=== PATIENT | female | born 2000 | race Two or more races ===

== ENCOUNTER 2024-12-28 10:25 | Emergency (ER) | payer BC | END 2024-12-28 11:19 | disposition home or self-care (01) | LOC: DL.ED 10:25 | DX: R06.02 Shortness of breath (principal); T50.Z95A Adverse effect of other vaccines and biological substances, initial encounter | CPT/HCPCS: 99282; 99283 ==

== ENCOUNTER 2025-02-01 16:04 | Observation (INO) | payer BC ==
[2025-02-01] MEDS: Lactated Ringers 1,000 ML IV ONE (19:50)
== END 2025-02-02 10:50 | disposition home or self-care (01) ==
LOC: DL.OBCHECK 16:04 → DL.MS 22:12
PROVIDERS: ADMIT Family Medicine; ATTEND Family Medicine
DX: O24.415 Gestational diabetes mellitus in pregnancy, controlled by oral hypoglycemic drugs (principal); O28.8 Other abnormal findings on antenatal screening of mother; Z79.84 Long term (current) use of oral hypoglycemic drugs; Z79.899 Other long term (current) drug therapy
CPT/HCPCS: 59025; G0378; J7120

== ENCOUNTER → 2025-02-12 12:30 | Inpatient (IN) | payer BC ==
[2025-02-08 13:32] LABS: PLATELET COUNT,PLT 219.0 10^3/uL (150-450); RED BLOOD CELL COUNT 4.17 10^6/uL (4.2-5.4); WHITE BLOOD CELL COUNT,WBC 10.2 10^3/uL (5.0-10.0)
[2025-02-08] MEDS: Misoprostol 50 MCG (1/2 of 100 MCG) Tab PO SCH (13:45)
[2025-02-08] MEDS: Lactated Ringers 1,000 ML IV ONE (18:30)
[2025-02-09] MEDS: Oxytocin/Normal Saline 30 UNIT/500 ML BAG IV SCH (00:08)
[2025-02-09] MEDS: Lactated Ringers 1,000 ML IV SCH (00:43)
[2025-02-10 00:53] LABS: CREATININE,URINE RAND 85.72 mg/dL (No establ ref range); PROTEIN CREATININE RATIO,URINE 326.6 mg/g (<150.0); PROTEIN,URINE RANDOM 28.0 mg/dL (0.0-11.9)
[2025-02-10] MEDS: Ketorolac 30 MG/ML SDV IVPUSH ONE (04:00)
[2025-02-10] MEDS: fentaNYL 100 MCG/2 ML SDV IVPUSH PRN (04:09)
[2025-02-10 08:11] LABS: PLATELET COUNT,PLT 190.0 10^3/uL (150-450); RED BLOOD CELL COUNT 3.5 10^6/uL (4.2-5.4); WHITE BLOOD CELL COUNT,WBC 22.4 10^3/uL (5.0-10.0)
[2025-02-10 08:31] LABS: ALANINE AMINOTRANSFERASE,ALT 12.0 U/L (14-59); ASPARTATE AMNIOTRANSFERASE,AST 16.0 U/L (15-37); BLOOD UREA NITROGEN,BUN 14.0 mg/dL (7-18); CREATININE 0.68 mg/dL (0.55-1.02); EST CRCL DRUG DOSING (CG) 111.11 mL/min; LACTATE DEHYDROGENASE,LDH 215.0 U/L (81-234)
[2025-02-10] MEDS: Acetaminophen/oxyCODONE 325-5 MG Tab PO PRN (08:36)
[2025-02-10] MEDS: Prenatal Multivitamin with Calcium/Folic Acid/Iron Tab PO SCH (08:37)
[2025-02-10 08:38] LABS: ESTIMATED GFR 125.0 mL/min (>=60)
[2025-02-10] MEDS: Ketorolac 30 MG/ML SDV IVPUSH SCH (10:20)
[2025-02-11 07:48] LABS: BASOPHILS PERCENT AUTO 0.1 % (0.0-1.0); EOSINOPHILS PERCENT AUTO 0.5 % (1.0-3.0); LYMPHOCYTES PERCENT AUTO 12.9 % (20.5-50.1); MONOCYTES PERCENT AUTO 4.9 % (2-8); NEUTROPHILS PERCENT AUTO 81.6 % (42.2-75.2); PLATELET COUNT,PLT 193 10^3/uL (150-450); RED BLOOD CELL COUNT 2.84 10^6/uL (4.2-5.4); WHITE BLOOD CELL COUNT,WBC 14.6 10^3/uL (5.0-10.0)
[~2025-02-12 12:30] MED LIST: Acetaminophen/oxyCODONE 325-5 MG Tab PO PRN; Carboprost Tromethamine 250 MCG/1 mL Vial IM PRN; Dexamethasone 4 MG/ML SDV IV ONE; Dexamethasone 4 MG/ML SDV ONE; Ketorolac 30 MG/ML SDV IVPUSH SCH; Lactated Ringers 1,000 ML IV ONE; Lactated Ringers 1,000 ML IV SCH; Midazolam 1 MG/ML 2 ML SDV IV ONE; Misoprostol 50 MCG (1/2 of 100 MCG) Tab PO PRN; Morphine PF 10 MG/10 ML SDV EPIDUR ONE; Ondansetron 4 MG/2 ML SDV IV ONE; Ondansetron 4 MG/2 ML SDV IVPUSH PRN; Oxytocin 10 Units/1 ML SDV IM PRN; Oxytocin/Lactated Ringers 30 UNIT/500 ML BAG IV SCH; Oxytocin/Normal Saline 30 UNIT/500 ML BAG IV ONE; Oxytocin/Normal Saline 30 UNIT/500 ML BAG ONE; Propofol 200 MG/20 ML SDV IV ONE; Ropivacaine 100 ML EPIDUR ONE; Ropivacaine 200 MG in Premix Bag 1 BAG EPIDUR SCH; Sodium Chloride 0.9% 10 ML Syringe FLUSH PRN; Sodium Chloride 0.9% 10 ML Syringe IV ONE; diphenhydrAMINE 50 MG/ML SDV IVPUSH PRN; ePHEDrine 50 MG/ML SDV IVPUSH PRN; fentaNYL 100 MCG/2 ML SDV EPIDUR ONE
== END | disposition home or self-care (01) | DRG 540 ==
LOC: DL.OB 02-08 13:23 → UNDOADMOB 02-08 13:23 → DL.OB 02-09 13:23 → UNDOADMOB 02-08 12:22 → DL.OB 02-08 12:22 → OBSVTOIN 02-10 01:18
PROVIDERS: ADMIT Family Medicine; ATTEND Family Medicine
PROC: 10D00Z1 Extraction of Products of Conception, Low, Open Approach (ICD-10-PCS; principal; 2025-02-10)
DX: O24.425 Gestational diabetes mellitus in childbirth, controlled by oral hypoglycemic drugs (principal); Z3A.39 39 weeks gestation of pregnancy; Z37.0 Single live birth; O99.214 Obesity complicating childbirth; Z79.84 Long term (current) use of oral hypoglycemic drugs; Z79.899 Other long term (current) drug therapy; O77.0 Labor and delivery complicated by meconium in amniotic fluid; O14.94 Unspecified pre-eclampsia, complicating childbirth; D62 Acute posthemorrhagic anemia; Z98.890 Other specified postprocedural states
CPT/HCPCS: 36415; 51702; 82565; 82570; 82947; 83615; 84156; 84450; 84460; 84520; 84550; 85025; 85027; 86850; 86900; 86901; A9270-GY; J1885; J2590; J3010; J7030; J7120